=== PATIENT | male | born 1965 | race Caucasian/White ===

== ENCOUNTER 2016-12-20 13:33 | Emergency (ER) | payer OTHER | END 2016-12-20 15:35 | disposition home or self-care (01) | LOC: ER 13:33 | DX: S93.402A Sprain of unspecified ligament of left ankle, initial encounter (principal); S30.1XXA Contusion of abdominal wall, initial encounter; S50.312A Abrasion of left elbow, initial encounter; S50.311A Abrasion of right elbow, initial encounter; V29.49XA Motorcycle driver injured in collision with other motor vehicles in traffic accident, initial encounter | CPT/HCPCS: 90471; 96372; J1885 ==